=== PATIENT | female | born 1955 | race Caucasian/White ===

== ENCOUNTER → 2016-11-02 | Outpatient (REF) | payer OTHER ==
[~2016-11-02] MED LIST: ALIG4CAP PO; ATOR40TA PO; CO Q400C2 PO; PROBCAP12 PO; PROP40TA PO; RANI1TAB38 PO; TIMO5OPG OS; [UNRECOGNIZED DRUG - CODE] XX
== END ==
LOC: M SFHCWAGY 11:13
PROVIDERS: ATTEND Nurse Practitioner Women's Health
DX: Z12.4 Encounter for screening for malignant neoplasm of cervix (principal); N88.8 Other specified noninflammatory disorders of cervix uteri

== ENCOUNTER → 2016-11-02 | Outpatient (CLI) | payer OTHER ==
--- NOTE | 2016-11-02 12:03 | REPMRS ---
Patient History The patient states she had a clinical breast exam in Patient is postmenopausal and has history of other cancer at age 40. Family history of colorectal cancer in paternal grandfather under age 50, breast cancer in paternal aunt at age 50 or over, colorectal cancer in paternal aunt under age 50, and colorectal cancer in 2 paternal uncles at age 50 or over. Benign excisional biopsy of the left breast, 2000. Took estrogen for 1 year. Digital Woman Screen Mammo: November 02, 2016 - Exam #: [id number] Bilateral CC and MLO view(s) were taken. Technologist: Gwendolyn Winter, Technologist Prior study comparison: November 02, 2015, digital woman screen mammo performed at [facility]. November 02, 2014, digital woman screen mammo performed at [facility]. October 29, 2013, digital woman screen mammo performed at [facility]. FINDINGS: There are scattered fibroglandular densities. There has been no change in the appearance of the mammogram from the prior studies. There is a needle biopsy marker clip in the left breast. There is a mild amount of scattered fibroglandular density which is fairly symmetric. There is no interval development of dominant mass, architectural distortion, or clustered microcalcification suggestive of malignancy. ASSESSMENT: BI-RADS/ACR category 2 mammogram. Benign finding(s). Recommendation Routine screening mammogram in 1 year (for women over age 40). This mammogram was interpreted with the aid of an FDA-approved computer-aided dectection system. Electronically Signed By: Glenn Toro MD 11/02/16 1123
== END ==
LOC: M WHC 11:01
PROVIDERS: ATTEND Nurse Practitioner Women's Health
DX: Z12.31 Encounter for screening mammogram for malignant neoplasm of breast (principal); Z85.9 Personal history of malignant neoplasm, unspecified; Z79.899 Other long term (current) drug therapy

== ENCOUNTER → 2016-11-08 | Outpatient (CLI) | payer OTHER ==
[~2016-11-08] VITALS: Ht 160 cm; Wt 65.8 kg
[~2016-11-08] MED LIST changes: +CALC1TAB42 PO; +CO Q100C10 PO; +LIDOCAINE 2% INJ 100 MG/5 ML SDV (FOR ANES.) As Ordered ONE; +NS 1,000 ML IV SCH; +PROPOFOL 200 MG/20 ML VIAL As Ordered ONE
--- NOTE | 2016-11-08 15:13 | ROOR ---
Patient Name: Loren Melgoza Procedure Date: 11/08/2016 2:58 PM Date of : 1955 Age: 61 Room: [facility] Gender: Female Note Status: Finalized Procedure: Upper GI endoscopy Indications: Dyspepsia, Heartburn Providers: Geoffrey CERVANTES MD Referring MD: WESTLEY RAMIREZ DO Requesting Provider: Medicines: Monitored Anesthesia Care Complications: No immediate complications. Procedure: Pre-Anesthesia Assessment: - The heart rate, respiratory rate, oxygen saturations, blood pressure, adequacy of pulmonary ventilation, and response to care were monitored throughout the procedure. The Endoscope was introduced through the mouth, and advanced to the second part of duodenum. The upper GI endoscopy was accomplished without difficulty. The patient tolerated the procedure well. Findings: Non-severe esophagitis with no bleeding was found at the gastroesophageal junction. Biopsies were taken with a cold forceps for histology. A small hiatal hernia was present. The entire examined stomach was normal. The examined duodenum was normal. Impression: - Non-severe reflux esophagitis. Biopsied. - Small hiatal hernia. - Normal stomach. - Normal examined duodenum. Recommendation: - Use Prilosec (omeprazole) 20 mg PO daily for 1 month. - Follow an antireflux regimen. - Telephone endoscopist for pathology results in 2 weeks. - (the script was sent to your pharmacy on file) Geoffrey Cervantes MD Geoffrey CERVANTES MD 11/08/2016 3:12:39 PM This report has been signed electronically. Number of Addenda: 0 Note Initiated On: 11/08/2016 2:58 PM Estimated Blood Loss: Estimated blood loss: none.
[2016-11-08 15:35] VITALS: BP 140/84
== END | disposition home or self-care (01) ==
LOC: M OPP 13:56
PROVIDERS: ATTEND Internal Medicine Gastroenterology
DX: K20.9 Esophagitis, unspecified (principal); K44.9 Diaphragmatic hernia without obstruction or gangrene; K21.0 Gastro-esophageal reflux disease with esophagitis; I49.9 Cardiac arrhythmia, unspecified; E78.5 Hyperlipidemia, unspecified; M19.90 Unspecified osteoarthritis, unspecified site; Z79.899 Other long term (current) drug therapy

== ENCOUNTER → 2017-01-22 | Outpatient (REF) | payer OTHER ==
[~2017-01-22] MED LIST changes: -LIDOCAINE 2% INJ 100 MG/5 ML SDV (FOR ANES.) As Ordered ONE; -NS 1,000 ML IV SCH; -PROPOFOL 200 MG/20 ML VIAL As Ordered ONE
[2017-01-22 18:32] LABS: ALBUMIN/GLOBULIN RATIO 1.43 (1.00-1.93); ALKALINE PHOSPHATASE 58 U/L (45-117); ALT/SGPT 32 U/L (12-78); ANION GAP 9 MEQ/L (8-16); AST/SGOT 24 U/L (15-37); BILIRUBIN,TOTAL 0.7 MG/DL (0.2-1.0); BLOOD UREA NITROGEN 14 MG/DL (7-18); CALCIUM LEVEL 8.8 MG/DL (8.8-10.2); CARBON DIOXIDE LEVEL 27 MEQ/L (21-32); CHLORIDE LEVEL 105 MEQ/L (98-107); CHOLESTEROL LEVEL 205 MG/DL (<200); CREATININE FOR GFR 0.73 MG/DL (0.55-1.02); GLOMERULAR FILTRATION RATE > 60.0 (>45); GLUCOSE, FASTING 97 MG/DL (80-110); POTASSIUM SERUM 4.3 MEQ/L (3.5-5.1); SODIUM LEVEL 141 MEQ/L (136-145); TOTAL PROTEIN 6.8 GM/DL (6.4-8.2); TRIGLYCERIDES LEVEL 126 MG/DL (<150)
== END ==
LOC: M SFHCCLAY 09:59
PROVIDERS: ATTEND Family Medicine
DX: E78.2 Mixed hyperlipidemia (principal)

== ENCOUNTER → 2017-11-06 | Outpatient (CLI) | payer OTHER | LOC: M WHC 10:30 | DX: Z12.31 Encounter for screening mammogram for malignant neoplasm of breast (principal); Z78.0 Asymptomatic menopausal state; Z79.890 Hormone replacement therapy; Z80.0 Family history of malignant neoplasm of digestive organs; Z85.828 Personal history of other malignant neoplasm of skin | CPT/HCPCS: 77067 ==

== ENCOUNTER → 2017-11-06 | Outpatient (REF) | payer OTHER | LOC: M SFHCWAGY 11:04 | DX: Z12.4 Encounter for screening for malignant neoplasm of cervix (principal) | CPT/HCPCS: 88142 ==

== ENCOUNTER → 2017-12-05 | Outpatient (REF) | payer OTHER | LOC: M SFHCLERA 09:43 | DX: L30.9 Dermatitis, unspecified (principal) | CPT/HCPCS: 88305 ==

== ENCOUNTER → 2017-12-12 | Outpatient (REF) | payer OTHER ==
[2017-12-15 00:06] LABS: Lyme Disease IgG/IgM Antibodie <0.91 ISR (0.00-0.90); Lyme Disease IgM Ab Quantitati <0.80 index (0.00-0.79)
== END ==
LOC: M SFHCLERA 16:00
DX: L92.0 Granuloma annulare (principal)
CPT/HCPCS: 86617

== ENCOUNTER → 2018-01-28 | Outpatient (REF) | payer OTHER ==
[2018-01-28 18:01] LABS: ALBUMIN/GLOBULIN RATIO 1.33 (1.00-1.93); ALKALINE PHOSPHATASE 57 U/L (45-117); ALT/SGPT 31 U/L (12-78); ANION GAP 6 MEQ/L (8-16); AST/SGOT 27 U/L (7-37); BILIRUBIN,TOTAL 0.6 MG/DL (0.2-1.0); BLOOD UREA NITROGEN 12 MG/DL (7-18); CALCIUM LEVEL 8.3 MG/DL (8.8-10.2); CARBON DIOXIDE LEVEL 29 MEQ/L (21-32); CHLORIDE LEVEL 101 MEQ/L (98-107); CHOLESTEROL LEVEL 214 MG/DL (<200); CHOLESTEROL RISK RATIO 3.242 (<5); CREATININE FOR GFR 0.79 MG/DL (0.55-1.30); GLOMERULAR FILTRATION RATE > 60.0 (>45); GLUCOSE, FASTING 101 MG/DL (70-100); HDL CHOLESTEROL 66 MG/DL (>40); NON-HDL-C 148 MG/DL; POTASSIUM SERUM 4.4 MEQ/L (3.5-5.1); SODIUM LEVEL 136 MEQ/L (136-145); TRIGLYCERIDES LEVEL 65 MG/DL (<150)
== END ==
LOC: M SFHCCLAY 10:01
DX: E78.2 Mixed hyperlipidemia (principal)
CPT/HCPCS: 84443

== ENCOUNTER → 2018-07-29 | Outpatient (REF) | payer MEDICARE ==
[2018-07-29 13:11] LABS: ALBUMIN 4.1 GM/DL (3.2-5.2); ALBUMIN/GLOBULIN RATIO 1.41 (1.00-1.93); ALKALINE PHOSPHATASE 73 U/L (45-117); ALT/SGPT 36 U/L (12-78); ANION GAP 12 MEQ/L (8-16); AST/SGOT 28 U/L (7-37); BLOOD UREA NITROGEN 13 MG/DL (7-18); CARBON DIOXIDE LEVEL 25 MEQ/L (21-32); CHLORIDE LEVEL 100 MEQ/L (98-107); CREATININE FOR GFR 0.71 MG/DL (0.55-1.30); GLOMERULAR FILTRATION RATE > 60.0 (>45); GLUCOSE, FASTING 91 MG/DL (70-100); POTASSIUM SERUM 4.8 MEQ/L (3.5-5.1); SODIUM LEVEL 137 MEQ/L (136-145)
== END ==
LOC: M SFHCCLAY 09:37
DX: E78.2 Mixed hyperlipidemia (principal)
CPT/HCPCS: 80053

== ENCOUNTER → 2018-07-30 | Outpatient (REF) | payer MEDICARE | LOC: M SFHCLERA 17:39 | DX: D23.5 Other benign neoplasm of skin of trunk (principal); L82.1 Other seborrheic keratosis | CPT/HCPCS: 88305 ==

== ENCOUNTER 2018-11-03 07:44 | Day surgery (SDC) | payer MEDICARE ==
[~2018-11-03] VITALS: Ht 160 cm; Wt 66.2 kg
[~2018-11-03 07:44] MED LIST changes: -ATOR40TA PO; +ATOR40TA75 PO; +LIDOCAINE 2% INJ 100 MG/5 ML SDV (FOR ANES.) As Ordered ONE; -PROP40TA PO; +PROP40TA62 PO; +PROPOFOL 200 MG/20 ML VIAL As Ordered ONE; +TIMO0.5S29 OU; -TIMO5OPG OS; +TIMO5OPG OU
[2018-11-03] MEDS ORDERED: NS 1,000 ML IV ONE (08:15)
--- NOTE | 2018-11-03 09:11 | ROOR ---
Patient Name: Loren Melgoza Procedure Date: 11/03/2018 8:49 AM Date of : 1955 Age: 63 Room: [facility] Gender: Female Note Status: Finalized Procedure: Colonoscopy Indications: Colon cancer screening in patient at increased risk: Family history of colorectal cancer in multiple 2nd degree relatives Providers: Geoffrey CERVANTES MD Referring MD: SUNDAR MAY DO Requesting Provider: Medicines: Monitored Anesthesia Care Complications: No immediate complications. Procedure: Pre-Anesthesia Assessment: - The heart rate, respiratory rate, oxygen saturations, blood pressure, adequacy of pulmonary ventilation, and response to care were monitored throughout the procedure. The Colonoscope was introduced through the anus and advanced to the terminal ileum, with identification of the appendiceal orifice and IC valve. The colonoscopy was performed without difficulty. The patient tolerated the procedure well. The quality of the bowel preparation was good. Findings: The perianal and digital rectal examinations were normal. Mild sigmoid diverticulosis and small internal hemorrhoids. The entire examined colon appeared normal on direct and retroflexion views. Impression: - Mild sigmoid diverticulosis and small internal hemorrhoids. - The entire colon is normal on direct and retroflexion views. - No specimens collected. Recommendation: - Repeat colonoscopy in 5 years for screening purposes. Geoffrey Cervantes MD Geoffrey CERVANTES MD 11/03/2018 9:10:31 AM This report has been signed electronically. Number of Addenda: 0 Note Initiated On: 11/03/2018 8:49 AM Estimated Blood Loss: Estimated blood loss: none.
[2018-11-03 09:37] VITALS: BP 104/67
== END 2018-11-03 09:39 | disposition home or self-care (01) ==
LOC: M OPP 07:44
PROVIDERS: ATTEND Internal Medicine Gastroenterology
DX: Z12.11 Encounter for screening for malignant neoplasm of colon (principal); R00.0 Tachycardia, unspecified; Z80.0 Family history of malignant neoplasm of digestive organs; Z80.3 Family history of malignant neoplasm of breast; K57.30 Diverticulosis of large intestine without perforation or abscess without bleeding; K64.8 Other hemorrhoids; Z79.899 Other long term (current) drug therapy

== ENCOUNTER → 2018-11-06 | Outpatient (CLI) | payer MEDICARE ==
[~2018-11-06] MED LIST changes: -LIDOCAINE 2% INJ 100 MG/5 ML SDV (FOR ANES.) As Ordered ONE; -PROPOFOL 200 MG/20 ML VIAL As Ordered ONE
--- NOTE | 2018-11-06 11:57 | REPMRS ---
Patient History The patient states she had a clinical breast exam in 10/2018. Patient is postmenopausal and has history of skin cancer at age 40. Family history of colorectal cancer under age 50 in paternal uncle, colorectal cancer under age 50 in paternal aunt, colorectal cancer at age 50 or over in paternal uncle, colorectal cancer under age 50 in paternal grandfather. Benign excisional biopsy of the left breast, 2000. Taking estrogen for 10 years. 3D TOMOSYNTHESIS WAS PERFORMED. Digital Woman Screen Mammo: November 06, 2018 - Exam #: [id number] Bilateral CC and MLO view(s) were taken. Technologist: Jyoti Elliott, Technologist Prior study comparison: November 06, 2017, digital woman screen mammo performed at [facility]. November 02, 2016, digital woman screen mammo performed at [facility] [employer] [facility]. FINDINGS: There are scattered fibroglandular densities. There has been no change in the appearance of the mammogram from the prior studies. There is a mild amount of residual fibroglandular tissue which is fairly symmetric. There is no interval development of dominant mass, architectural distortion, or clustered microcalcification suggestive of malignancy. Assessment: BI-RADS/ACR category 1 mammogram. Negative Mammogram. Recommendation Routine screening mammogram in 1 year (for women over age 40). This mammogram was interpreted with the aid of an FDA-approved computer-aided dectection system. Electronically Signed By: Irwin Avalos MD 11/06/18 5709
== END ==
LOC: M WHC 10:39
PROVIDERS: ATTEND Nurse Practitioner Women's Health
DX: Z12.31 Encounter for screening mammogram for malignant neoplasm of breast (principal); Z78.0 Asymptomatic menopausal state; Z85.828 Personal history of other malignant neoplasm of skin; Z86.018 Personal history of other benign neoplasm; Z92.23 Personal history of estrogen therapy

== ENCOUNTER → 2019-01-26 | Outpatient (REF) | payer MEDICARE ==
[~2019-01-26] MED LIST changes: +TIMO0.5S7 OU; -TIMO5OPG OU
[2019-01-26 19:30] LABS: ALT/SGPT 37 U/L (12-78); BILIRUBIN,TOTAL 0.9 MG/DL (0.2-1.0); BLOOD UREA NITROGEN 11 MG/DL (7-18); CALCIUM LEVEL 8.6 MG/DL (8.8-10.2); CARBON DIOXIDE LEVEL 27 MEQ/L (21-32); CHLORIDE LEVEL 101 MEQ/L (98-107); CHOLESTEROL LEVEL 188 MG/DL (<200); CHOLESTEROL RISK RATIO 3.081 (<5); CREATININE FOR GFR 0.74 MG/DL (0.55-1.30); GLOMERULAR FILTRATION RATE > 60.0 (>45); GLUCOSE, FASTING 95 MG/DL (70-100); HDL CHOLESTEROL 61 MG/DL (>40); LDL CHOLESTEROL 113 MG/DL (<100); NON-HDL-C 127 MG/DL; POTASSIUM SERUM 4.8 MEQ/L (3.5-5.1); SODIUM LEVEL 136 MEQ/L (136-145); TOTAL PROTEIN 7.3 GM/DL (6.4-8.2); TRIGLYCERIDES LEVEL 72 MG/DL (<150)
== END ==
LOC: M SFHCCLAY 09:53
PROVIDERS: ATTEND Family Medicine
DX: E78.2 Mixed hyperlipidemia (principal)

== ENCOUNTER → 2019-08-18 | Outpatient (CLI) | payer MEDICARE ==
--- NOTE | 2019-08-18 11:16 | REP ---
RIGHT LONG FINGER SERIES: Four views. HISTORY: Nodule on the distal phalanx of the third finger. FINDINGS: Four views of the right long finger demonstrate advanced joint space narrowing, some central erosive change, and prominent osteophyte formation and sclerosis at the DIP joint of the right long finger. There is somewhat nodular soft tissue fullness over the dorsal aspect of the DIP joint. 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 There are lesser osteoarthritic changes at the DIP joint of the ring finger and the index finger noted incidentally. 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 Electronically Signed by Boy Toro MD 08/18/2019 11:47 A
== END ==
LOC: M CLY 10:44
PROVIDERS: ATTEND Family Medicine
DX: M19.041 Primary osteoarthritis, right hand (principal); R22.31 Localized swelling, mass and lump, right upper limb

== ENCOUNTER → 2020-02-01 | Outpatient (REF) | payer MEDICARE ==
[2020-02-01 16:57] LABS: ALBUMIN 4.2 GM/DL (3.2-5.2); ALT/SGPT 43 U/L (12-78); BILIRUBIN,TOTAL 0.6 MG/DL (0.2-1.0); BLOOD UREA NITROGEN 11 MG/DL (7-18); CALCIUM LEVEL 8.9 MG/DL (8.8-10.2); CARBON DIOXIDE LEVEL 30 MEQ/L (21-32); CHLORIDE LEVEL 104 MEQ/L (98-107); CHOLESTEROL LEVEL 201 MG/DL (<200); CHOLESTEROL RISK RATIO 3.092 (<5); CREATININE FOR GFR 0.76 MG/DL (0.55-1.30); GLOMERULAR FILTRATION RATE > 60.0 (>45); GLUCOSE, FASTING 110 MG/DL (70-100); HDL CHOLESTEROL 65 MG/DL (>40); LDL CHOLESTEROL 117 MG/DL (<100); NON-HDL-C 136 MG/DL; POTASSIUM SERUM 4.5 MEQ/L (3.5-5.1); SODIUM LEVEL 138 MEQ/L (136-145); TOTAL PROTEIN 6.8 GM/DL (6.4-8.2); TRIGLYCERIDES LEVEL 95 MG/DL (<150)
== END ==
LOC: M SFHCCLAY 09:53
PROVIDERS: ATTEND Family Medicine
DX: E78.2 Mixed hyperlipidemia (principal)

== ENCOUNTER → 2020-03-07 | Outpatient (CLI) | payer MEDICARE ==
--- NOTE | 2020-03-07 12:34 | REPMRS ---
Patient History The patient states she has not had a clinical breast exam in over a year. Family history of colorectal cancer under age 50 in paternal uncle, colorectal cancer under age 50 in paternal aunt, colorectal cancer at age 50 or over in paternal uncle, colorectal cancer under age 50 in paternal grandfather. Benign excisional biopsy of the left breast, 1999. Taking estrogen for 10 years. Digital Woman Screen Mammo: March 07, 2020 - Exam #: [id number] Bilateral CC and MLO view(s) were taken. Technologist: Greta Durbin, Technologist Prior study comparison: November 06, 2018, bilateral digital woman screen mammo performed at [facility]. November 06, 2017, digital woman screen mammo performed at [facility]. November 02, 2016, digital woman screen mammo performed at [facility]. FINDINGS: There are scattered fibroglandular densities. The Volpara volumetric breast density category is:B. There has been no change in the appearance of the mammogram from the prior studies. There is a mild amount of scattered fibroglandular density which is fairly symmetric. There is no interval development of dominant mass, architectural distortion, or grouped microcalcification suggestive of malignancy. 3-D tomosynthesis shows no additional findings. Assessment: BI-RADS/ACR category 1 mammogram. Negative Mammogram. Recommendation Routine screening mammogram of both breasts in 1 year (for women over age 40). This patient's Lifetime Breast Cancer Risk is estimated at 5.0 %. This mammogram was interpreted with the aid of an FDA-approved computer-aided dectection system. Electronically Signed By: Glenn Toro MD 03/07/20 1600
--- NOTE | 2020-03-10 13:18 | DEXA ---
AP SPINE L1 - L4 1.203 0.1 1.7 LT FEMUR TOTAL 1.004 0.0 1.3 LT NECK 0.984 -0.4 1.2 RT FEMUR TOTAL 0.994 -0.1 1.2 RT NECK 1.011 -0.2 1.3 TOTAL BODY TOTAL OTHER COMMENTS: Normal bone densitometry of the spine and hips. The density of the spine has increased 4.2% since the initial exam on 06/27/2005. The increased 1.3% since the most recent exam on 10/30/2011. The density of the left hip has decreased 2.9% since the initial exam on 06/27/2005. The density of the left hip has increased 0.6% since the most recent exam on 10/30/2011. The density of the right hip has decreased 2.8% since the initial exam on 06/27/2005. The density of the right hip has increased 1.1% since the most recent exam on 10/30/2011. FOLLOW-UP: Recommendation for the next bone density exam: 5 years. JANE
== END ==
LOC: M WHC 10:51
PROVIDERS: ATTEND Nurse Practitioner Women's Health
DX: Z12.31 Encounter for screening mammogram for malignant neoplasm of breast (principal); Z78.0 Asymptomatic menopausal state

== ENCOUNTER → 2020-08-15 | Outpatient (CLI) | payer MEDICARE ==
--- NOTE | 2020-08-16 12:54 | ECHO ---
DATE OF PROCEDURE: 08/15/2020 Age: 65 Gender: Female Height: 160 cm Weight: Weight 63 kg REFERRING PHYSICIAN: Janie Kapoor MD INDICATION: Tachycardia MEASUREMENTS: IVS 0.9 LV 3.9 LVPW 0.9 LA 2.8 Aorta 3.1 RV 2.5 IVC 1.0 Mitral E wave velocity 45, A wave 73 E prime septal 6.3 E prime lateral 5.8 FINDINGS: This study is of acceptable technical quality. Underlying sinus rhythm. Normal LV size with preserved LV systolic function. Estimated left ventricular ejection fraction (LVEF) 60 to 65%. No segmental wall motion abnormalities are appreciated. Normal RV size and systolic function. Both atria appear normal. All four cardiac valves were reasonably well seen and appear normal. No pericardial effusion is present. Inferior vena cava is normal size. Aortic root and aortic arch appear normal. Doppler interrogation reveals competent aortic mitral and pulmonic valves. There is trace tricuspid insufficiency. Calculated pulmonary artery pressure is within normal limits. Mitral inflow pattern and tissue Doppler imaging of mitral annulus reveal grade 1 diastolic dysfunction. CONCLUSIONS: 1. Study is of acceptable technical quality. The patient is in sinus rhythm. 2. Normal LV size with preserved LV systolic function and grade I diastolic dysfunction. 3. No significant valvular disease. 4. Normal central venous pressure, likely also normal pulmonary artery pressure. COMMENTS: Essentially normal echocardiogram for the patient's age. [facility]
== END ==
LOC: M CARPUL 09:12
PROVIDERS: ATTEND Family Medicine
DX: I34.0 Nonrheumatic mitral (valve) insufficiency (principal); I47.1 Supraventricular tachycardia

== ENCOUNTER → 2020-10-31 | Outpatient (REF) | payer MEDICARE ==
[2020-11-01 12:07] LABS: BASO % 0.9 % (0.0-1.0); EOS # 0.1 10^3/uL (0.0-0.5); EOS % 1.1 % (0.0-3.0); HEMATOCRIT 37.3 % (36.0-47.0); HEMOGLOBIN 12.1 g/dl (12.0-15.5); LYMPH # 1.3 10^3/uL (1.5-5.0); LYMPH % 27.9 % (24.0-44.0); MEAN CORPUSCULAR HEMOGLOBIN 30.3 pg (27.0-33.0); MEAN CORPUSCULAR HGB CONC 32.4 g/dl (32.0-36.5); MEAN CORPUSCULAR VOLUME 93.5 fl (80.0-96.0); MONO # 0.6 10^3/uL (0.0-0.8); MONO % 13.2 % (0.0-5.0); NEUTROPHILS # 2.6 10^3/uL (1.5-8.5); NEUTROPHILS % 56.5 % (36.0-66.0); PLATELET COUNT, AUTOMATED 206 10^3/uL (150-450); RED BLOOD COUNT 3.99 10^6/uL (4.00-5.40); WHITE BLOOD COUNT 4.6 10^3/uL (4.0-10.0)
[2020-11-01 12:39] LABS: BILIRUBIN,TOTAL 0.5 MG/DL (0.2-1.0); CALCIUM LEVEL 8.9 MG/DL (8.8-10.2); CHOLESTEROL RISK RATIO 3.23 (<5); CREATININE FOR GFR 1.15 MG/DL (0.55-1.30); GLOMERULAR FILTRATION RATE 50.1 (>45); TOTAL PROTEIN 6.7 GM/DL (6.4-8.2)
== END ==
LOC: M SFHCCLAY 14:01
PROVIDERS: ATTEND Family Medicine
DX: R10.9 Unspecified abdominal pain (principal); E78.2 Mixed hyperlipidemia

== ENCOUNTER → 2020-11-16 | Outpatient (CLI) | payer MEDICARE ==
--- NOTE | 2020-11-16 11:15 | REP ---
INDICATION: RUQ ABD PAIN. COMPARISON: None. TECHNIQUE: Real-time sonographic evaluation of right upper quadrant performed. FINDINGS: The gallbladder demonstrates no evidence of intraluminal sludge or calculi, wall thickening or pericholecystic fluid. There is no intrahepatic or extrahepatic biliary dilatation, common bile duct measures 4 mm in maximum diameter. The liver demonstrates homogeneous echotexture with no gross mass. In the body of the pancreas a 5 mm cyst is noted. The right kidney demonstrates no hydronephrosis, with a normal size of 9.6 cm in length. No free fluid is seen. IMPRESSION: In the body of the pancreas there is a 5 mm cystic structure which is of doubtful significance. However, I would recommend further evaluation with an MRI of the pancreas with and without contrast. The right upper quadrant ultrasound is otherwise unremarkable. <Electronically signed by Irwin Avalos > 11/16/20 1111
== END ==
LOC: M RAD 09:27
PROVIDERS: ATTEND Family Medicine
DX: R10.9 Unspecified abdominal pain (principal)

== ENCOUNTER → 2020-12-09 | Outpatient (CLI) | payer MEDICARE ==
[~2020-12-09] MED LIST changes: +PROHANCE 279.3MG/ML 15ML VIAL As Ordered ONE
--- NOTE | 2020-12-09 12:42 | REP ---
INDICATION: PANCREATIC CYST, ABNORMALITY. 5 mm cystic areas seen in the body of the pancreas on sonography November 16, 2020. MRI study recommended. COMPARISON: Comparison sonography November 16, 2020.. TECHNIQUE: Axial and coronal T1 and T2 weighted sequences include spin echo, fast spin echo, in and out of phase, and dynamically acquired sequential postcontrast images. 6 mL of intravenous ProHance is administered. FINDINGS: No focal liver lesion or spleen lesion is seen. Normal adrenal glands are observed bilaterally. No filling defect is seen in the gallbladder on T2 weighted scans. Common bile duct and intrahepatic bile ducts are normal no evidence of pancreatic ductal dilation is seen. Pancreas is somewhat atrophic generally. There is a tiny cystic area in the body of the pancreas on T2 weighted scans 5 mm in diameter corresponding with the ultrasound findings. No other pancreatic cyst is seen. Dynamically acquired sequential postcontrast images show no evidence of enhancement within this small cystic area. No hypervascular or hypovascular lesion is seen in the pancreas. There is no evidence of upper abdominal lymphadenopathy. No renal lesion. IMPRESSION: 5 mm cyst in the body of the pancreas without abnormal contrast enhancement. Benign appearance. Follow-up ultrasound in 6-9 months suggested to document stability over time. <Electronically signed by Glenn Toor > 12/09/20 1569
== END ==
LOC: M RAD 11:20
PROVIDERS: ATTEND Family Medicine
DX: Q45.3 Other congenital malformations of pancreas and pancreatic duct (principal)
CPT/HCPCS: 74183; A9576

== ENCOUNTER → 2020-12-20 | Outpatient (REF) | payer MEDICARE ==
[~2020-12-20] MED LIST changes: -PROHANCE 279.3MG/ML 15ML VIAL As Ordered ONE
== END ==
LOC: M SFHCCLAY 17:27
PROVIDERS: ATTEND Family Medicine
DX: L30.9 Dermatitis, unspecified (principal); R21 Rash and other nonspecific skin eruption

== ENCOUNTER 2021-01-15 16:09 | Emergency (ER) | payer MEDICARE ==
[~2021-01-15] VITALS: Ht 160 cm; Wt 69.4 kg
[2021-01-15] MEDS ORDERED: LATA0.0015 OS (16:40)
[2021-01-15] MEDS ORDERED: COMB0.2S OU (16:40)
[2021-01-15 17:11] LABS: BASO % 0.5 % (0.0-1.0); EOS % 0.5 % (0.0-3.0); HEMATOCRIT 37.3 % (36.0-47.0); HEMOGLOBIN 12.5 g/dl (12.0-15.5); LYMPH # 1.7 10^3/uL (1.5-5.0); LYMPH % 21.5 % (24.0-44.0); MEAN CORPUSCULAR HEMOGLOBIN 30.6 pg (27.0-33.0); MEAN CORPUSCULAR HGB CONC 33.5 g/dl (32.0-36.5); MEAN CORPUSCULAR VOLUME 91.4 fl (80.0-96.0); MONO # 0.8 10^3/uL (0.0-0.8); MONO % 10.1 % (2.0-8.0); NEUTROPHILS # 5.3 10^3/uL (1.5-8.5); PLATELET COUNT, AUTOMATED 179 10^3/uL (150-450); RED BLOOD COUNT 4.08 10^6/uL (4.00-5.40); WHITE BLOOD COUNT 7.9 10^3/uL (4.0-10.0)
--- NOTE | 2021-01-15 17:29 | REP ---
INDICATION: CHEST PAIN COMPARISON: 01/02/2012 TECHNIQUE: Portable AP view of the chest FINDINGS: The mediastinum and cardiac silhouette are stable and within normal limits for portable technique. No focal consolidation or effusion. Small area of linear fibroatelectatic changes at the left base noted and likely chronic. No effusion. Skeletal structures intact. IMPRESSION: No consolidation or effusion. <Electronically signed by Charlie Amador > 01/15/21 0426
[2021-01-15 17:45] LABS: ALBUMIN 4.3 GM/DL (3.2-5.2); ALT/SGPT 35 U/L (12-78); BILIRUBIN,DIRECT 0.1 MG/DL (0.0-0.2); BILIRUBIN,TOTAL 0.7 MG/DL (0.2-1.0); BLOOD UREA NITROGEN 9 MG/DL (7-18); CALCIUM LEVEL 9.4 MG/DL (8.8-10.2); CARBON DIOXIDE LEVEL 26 MEQ/L (21-32); CHLORIDE LEVEL 96 MEQ/L (98-107); FREE T4 0.97 NG/DL (0.76-1.46); GLOMERULAR FILTRATION RATE > 60.0 (>45); GLUCOSE, FASTING 100 MG/DL (70-100); LIPASE 60 U/L (73-393); MAGNESIUM LEVEL 1.9 MG/DL (1.8-2.4); NT-PRO BNP 146 PG/ML (<125); POTASSIUM SERUM 4.1 MEQ/L (3.5-5.1); SODIUM LEVEL 130 MEQ/L (136-145); TOTAL PROTEIN 6.9 GM/DL (6.4-8.2)
[2021-01-15 18:44] VITALS: BP 127/68
--- NOTE | 2021-01-15 22:06 | ECGEPIP ---
[facility] - ED Test Date: 2021-01-15 Pat Name: LASHAY CARRASQUILLO Department: Room: - Gender: Female Process Control Technician: : 1955 Requested By: Dony Banuelos Order Number: [id number] Reading MD: Yohana Hawley Measurements Intervals [place] Rate: 61 P: 31 LA: 196 QRS: -7 QRSD: 74 T: 20 QT: 408 QTc: 410 Interpretive Statements Normal sinus rhythm Low voltage QRS Septal infarct , age undetermined NSTTW abnormalities No prior Electronically Signed on 01-15-2021 22:06:12 EDT by Yohana Hawley
--- NOTE | 2021-01-15 22:08 | ECGEPIP ---
[facility] - ED Test Date: 2021-01-15 Pat Name: LASHAY CARRASQUILLO Department: Room: - Gender: Female Founder And Chief Executive Officer: MILTON : 1955 Requested By: KRZYSZTOF HOWARD Order Number: [id number] Reading MD: Yohana Hawley Measurements Intervals [place] Rate: 63 P: -2 AL: 156 QRS: -5 QRSD: 70 T: 28 QT: 416 QTc: 425 Interpretive Statements Normal sinus rhythm Low voltage QRS Cannot rule out Anterior infarct , age undetermined NSTTW abnormalities similar 01/13/21 Electronically Signed on 01-15-2021 22:08:44 EDT by Yohana Hawley
== END 2021-01-15 18:45 | disposition home or self-care (01) ==
LOC: M ED 16:09
DX: I47.9 Paroxysmal tachycardia, unspecified (principal); R07.9 Chest pain, unspecified; I10 Essential (primary) hypertension; E78.5 Hyperlipidemia, unspecified; R50.9 Fever, unspecified; H40.9 Unspecified glaucoma; Z79.899 Other long term (current) drug therapy

== ENCOUNTER → 2021-03-08 | Outpatient (CLI) | payer MEDICARE ==
[~2021-03-08] MED LIST changes: +COMB0.2S OU; +LATA0.0015 OS
--- NOTE | 2021-03-08 12:57 | REPMRS ---
Patient History The patient states she has not had a clinical breast exam in over a year. Family history of colorectal cancer under age 50 in paternal uncle, colorectal cancer under age 50 in paternal aunt, colorectal cancer at age 50 or over in paternal uncle, colorectal cancer under age 50 in paternal grandfather. Benign excisional biopsy of the left breast, 1999. Taking estrogen for 10 years. Tomosynthesis is performed. Volpara breast density is b. [facility] lifetime risk of breast cancer 4.7%. Patient states no breast complaints today. Patient has signed MRS History Sheet. Digital Woman Screen Mammo: March 08, 2021 - Exam #: [id number] Bilateral CC and MLO view(s) were taken. Technologist: Griselda Mistryologist Prior study comparison: March 07, 2020, bilateral digital woman screen mammo performed at [facility]. November 06, 2018, bilateral digital woman screen mammo performed at [facility]. FINDINGS: There are scattered fibroglandular densities. There has been no change in the appearance of the mammogram from the prior studies. There is a mild amount of residual fibroglandular tissue which is fairly symmetric. There is no interval development of dominant mass, architectural distortion, or clustered microcalcification suggestive of malignancy. Assessment: BI-RADS/ACR category 1 mammogram. Negative Mammogram. Recommendation Routine screening mammogram in 1 year (for women over age 40). This mammogram was interpreted with the aid of an FDA-approved computer-aided dectection system. Electronically Signed By: Irwin Avalos MD 03/08/21 4485
== END ==
LOC: M WHC 11:20
PROVIDERS: ATTEND Nurse Practitioner Women's Health
DX: Z12.31 Encounter for screening mammogram for malignant neoplasm of breast (principal); Z80.0 Family history of malignant neoplasm of digestive organs

== ENCOUNTER → 2021-03-17 | Outpatient (CLI) | payer MEDICARE ==
--- NOTE | 2021-03-17 16:44 | REP ---
INDICATION: CHEST PAIN UNSPECIFIED COMPARISON: None. TECHNIQUE: Standard helical technique without intravenous contrast administration FINDINGS: There is no mediastinal or hilar adenopathy. There are no pleural or pericardial effusions. The imaged upper abdomen is within normal limits. The imaged osseous structures are within normal limits. Age-related spinal degenerative changes are noted. Evaluation of the lung barker shows minimal biapical pleuroparenchymal scarring. There is a subtle zone of vague density in the inferior lingula. No definite abnormal nodules, masses, or opacities are present. IMPRESSION: There is minimal biapical pleuroparenchymal scarring. Since are no priors comparison would recommend a six-month follow-up. There is a vague zone of increased parenchymal density seen in the inferior lingula which is likely subsegmental atelectatic change or slight fibrotic change. This can also be followed in the recommended 6 month time frame. <Electronically signed by Miko Herrera > 03/17/21 1640
== END ==
LOC: M RAD 16:23
PROVIDERS: ATTEND Family Medicine
DX: R07.89 Other chest pain (principal); R91.8 Other nonspecific abnormal finding of lung field; J98.4 Other disorders of lung

== ENCOUNTER → 2021-07-31 | Outpatient (REF) | payer MEDICARE | LOC: M SFHCCLAY 15:45 | PROVIDERS: ATTEND Family Medicine | DX: R39.15 Urgency of urination (principal) ==

== ENCOUNTER → 2021-08-15 | Outpatient (CLI) | payer MEDICARE ==
--- NOTE | 2021-08-15 12:16 | REP ---
INDICATION: PANCREAS CYST. COMPARISON: 11/16/2020 TECHNIQUE: Real-time sonographic evaluation of the right upper quadrant with Doppler FINDINGS: Multiple ultrasonographic images of the liver show the hepatic parenchymal echo texture to appear unremarkable. There are no focal masses. There is no intrahepatic ductal dilatation. The common bile duct measures approximately 3 mm in its greatest transverse dimension. Multiple ultrasonographic images of the gallbladder show no focal or diffuse gallbladder wall thickening. There are no echogenic foci within the gallbladder lumen, which casts acoustic shadows. There is no pericholecystic edema. Once again, the imaged portion the pancreas shows a hypoechoic region in the pancreatic body which measures 5 mm and may have sonographically changed in its appearance compared to the prior exam. The imaged portion of the right kidney is unremarkable. IMPRESSION: Pancreatic lesion as described above. Follow-up with pancreatic MRI before and after intravenous gadolinium is recommended so it can be compared to the prior pancreatic MRI of 12/09/2020. Accredited by the [employer] in General Ultrasound. <Electronically signed by Miko Herrera > 08/15/21 6412
== END ==
LOC: M RAD 10:08
PROVIDERS: ATTEND Family Medicine
DX: K86.2 Cyst of pancreas (principal)

== ENCOUNTER → 2021-08-30 | Outpatient (REF) | payer MEDICARE ==
[2021-08-30 16:19] LABS: BLOOD UREA NITROGEN 13 MG/DL (7-18); CALCIUM LEVEL 9.5 MG/DL (8.8-10.2); CARBON DIOXIDE LEVEL 28 MEQ/L (21-32); CHLORIDE LEVEL 104 MEQ/L (98-107); CREATININE FOR GFR 0.79 MG/DL (0.55-1.30); GLOMERULAR FILTRATION RATE > 60.0 (>45); GLUCOSE, FASTING 111 MG/DL (70-100); POTASSIUM SERUM 4.7 MEQ/L (3.5-5.1); SODIUM LEVEL 138 MEQ/L (136-145)
== END ==
LOC: M SFHCCLAY 10:03
PROVIDERS: ATTEND Family Medicine
DX: K86.2 Cyst of pancreas (principal); E78.2 Mixed hyperlipidemia

== ENCOUNTER → 2021-09-19 | Outpatient (CLI) | payer MEDICARE ==
[~2021-09-19] MED LIST changes: +CVS1CAP2 PO; +LUTE6CAP9 PO; +NEXI20CA PO; +PROHANCE 279.3MG/ML 15ML VIAL As Ordered ONE; +RHUB4TAB PO
== END ==
LOC: M RAD 10:37
PROVIDERS: ATTEND Family Medicine
DX: K86.2 Cyst of pancreas (principal)
CPT/HCPCS: 74183; A9576

== ENCOUNTER → 2021-10-19 | Outpatient (CLI) | payer MEDICARE ==
[~2021-10-19] MED LIST changes: -PROHANCE 279.3MG/ML 15ML VIAL As Ordered ONE
== END ==
LOC: M RAD 13:09
PROVIDERS: ATTEND Family Medicine
DX: J98.4 Other disorders of lung (principal); K44.9 Diaphragmatic hernia without obstruction or gangrene

== ENCOUNTER → 2021-10-21 | Outpatient (CLI) | payer MEDICARE | LOC: M LABSMTC 10:51 | PROVIDERS: ATTEND Anesthesiology | DX: Z01.812 Encounter for preprocedural laboratory examination (principal); Z20.822 Contact with and (suspected) exposure to COVID-19 ==

== ENCOUNTER 2021-10-26 10:09 | Day surgery (SDC) | payer MEDICARE ==
[~2021-10-26] VITALS: Ht 160 cm; Wt 68.0 kg
[~2021-10-26 10:09] MED LIST changes: +NS 1,000 ML IV ONE
[2021-10-26] MEDS ORDERED: fentaNYL 100 MCG/2 ML INJECTION As Ordered ONE (11:11)
[2021-10-26] MEDS ORDERED: propofoL 200 MG/20 ML VIAL As Ordered ONE ×2 (11:12→11:27)
[2021-10-26] MEDS ORDERED: LIDOCAINE 2% 100MG/5ML SDV (FOR ANES.) As Ordered ONE (11:12)
[2021-10-26] MEDS ORDERED: ONDANSETRON 4MG/2ML VIAL As Ordered ONE (12:09)
[2021-10-26 12:56] VITALS: BP 152/71
== END 2021-10-26 12:58 | disposition home or self-care (01) ==
LOC: M OPP 10:09
PROVIDERS: ATTEND Internal Medicine Gastroenterology
DX: R07.89 Other chest pain (principal); R12 Heartburn; Z80.0 Family history of malignant neoplasm of digestive organs; Z80.3 Family history of malignant neoplasm of breast; Z79.899 Other long term (current) drug therapy
CPT/HCPCS: 43235; J2405; J3010

== ENCOUNTER → 2022-01-23 | Outpatient (REF) | payer MEDICARE ==
[~2022-01-23] MED LIST changes: -NS 1,000 ML IV ONE
[2022-01-23 16:51] LABS: ALT/SGPT 35 U/L (12-78); BILIRUBIN,TOTAL 0.7 MG/DL (0.2-1.0); BLOOD UREA NITROGEN 11 MG/DL (7-18); CALCIUM LEVEL 9.5 MG/DL (8.8-10.2); CARBON DIOXIDE LEVEL 28 MEQ/L (21-32); CHLORIDE LEVEL 99 MEQ/L (98-107); CHOLESTEROL LEVEL 223 MG/DL (<200); CHOLESTEROL RISK RATIO 3.231 (<5); CREATININE FOR GFR 0.71 MG/DL (0.55-1.30); GLOMERULAR FILTRATION RATE > 60.0 (>45); GLUCOSE, FASTING 107 MG/DL (70-100); HDL CHOLESTEROL 69 MG/DL (>40); LDL CHOLESTEROL 139 MG/DL (<100); MAGNESIUM LEVEL 2.1 MG/DL (1.8-2.4); NON-HDL-C 154 MG/DL; POTASSIUM SERUM 4.9 MEQ/L (3.5-5.1); SODIUM LEVEL 135 MEQ/L (136-145); TOTAL PROTEIN 6.9 GM/DL (6.4-8.2); TRIGLYCERIDES LEVEL 77 MG/DL (<150)
[2022-01-23 17:29] LABS: HEMOGLOBIN A1c 5.6 %
[2022-01-23 19:43] LABS: BASO # 0.1 10^3/uL (0.0-0.2); EOS # 0.1 10^3/uL (0.0-0.5); EOS % 1.2 % (0.0-3.0); HEMATOCRIT 37.3 % (36.0-47.0); HEMOGLOBIN 12.7 g/dl (12.0-15.5); LYMPH # 1.8 10^3/uL (1.5-5.0); LYMPH % 37.1 % (24.0-44.0); MEAN CORPUSCULAR HEMOGLOBIN 30.9 pg (27.0-33.0); MEAN CORPUSCULAR VOLUME 90.8 fl (80.0-96.0); MONO # 0.7 10^3/uL (0.0-0.8); MONO % 13.4 % (2.0-8.0); NEUTROPHILS # 2.3 10^3/uL (1.5-8.5); NEUTROPHILS % 47.1 % (36.0-66.0); PLATELET COUNT, AUTOMATED 229 10^3/uL (150-450); RED BLOOD COUNT 4.11 10^6/uL (4.00-5.40); WHITE BLOOD COUNT 4.9 10^3/uL (4.0-10.0)
== END ==
LOC: M SFHCCLAY 09:52
PROVIDERS: ATTEND Family Medicine
DX: E78.2 Mixed hyperlipidemia (principal); K21.00 Gastro-esophageal reflux disease with esophagitis, without bleeding; R73.01 Impaired fasting glucose

== ENCOUNTER → 2022-01-29 | Outpatient (CLI) | payer MEDICARE | LOC: M CLY 11:47 | PROVIDERS: ATTEND Family Medicine | DX: M79.675 Pain in left toe(s) (principal); M19.072 Primary osteoarthritis, left ankle and foot ==

== ENCOUNTER → 2022-03-16 | Outpatient (REF) | payer MEDICARE | LOC: M SFHCCLAY 11:46 | PROVIDERS: ATTEND Family Medicine | DX: R10.9 Unspecified abdominal pain (principal) ==

== ENCOUNTER → 2022-03-21 | Outpatient (CLI) | payer MEDICARE | LOC: M CLY 10:13 | PROVIDERS: ATTEND Family Medicine | DX: M79.642 Pain in left hand (principal); M25.742 Osteophyte, left hand ==

== ENCOUNTER → 2022-07-04 | Outpatient (REF) | payer MEDICARE | LOC: M PLALAB 12:13 | PROVIDERS: ATTEND Nurse Practitioner Family | DX: Z12.4 Encounter for screening for malignant neoplasm of cervix (principal); N95.2 Postmenopausal atrophic vaginitis ==

== ENCOUNTER → 2022-07-04 | Outpatient (CLI) | payer MEDICARE | LOC: M WHC 10:28 | PROVIDERS: ATTEND Nurse Practitioner Family | DX: Z12.31 Encounter for screening mammogram for malignant neoplasm of breast (principal) ==

== ENCOUNTER → 2022-09-27 | Outpatient (REF) | payer MEDICARE ==
[~2022-09-27] MED LIST changes: -CO Q400C2 PO; +CVS400CA10 PO
[2022-09-27 18:00] LABS: BLOOD UREA NITROGEN 14 MG/DL (9-23); CALCIUM LEVEL 9.5 MG/DL (8.3-10.6); CARBON DIOXIDE LEVEL 27 MMOL/L (20-31); CHLORIDE LEVEL 102 MMOL/L (98-107); CREATININE FOR GFR 0.69 MG/DL (0.55-1.30); GLOMERULAR FILTRATION RATE > 60.0 (>45); GLUCOSE, FASTING 103 MG/DL (74-106); SODIUM LEVEL 137 MMOL/L (136-145)
== END ==
LOC: M SFHCCLAY 09:34
PROVIDERS: ATTEND Family Medicine
DX: K86.2 Cyst of pancreas (principal)

== ENCOUNTER → 2022-10-10 | Outpatient (CLI) | payer MEDICARE ==
[~2022-10-10] MED LIST changes: +PROHANCE 279.3MG/ML 15ML VIAL As Ordered ONE
== END ==
LOC: M RAD 12:35
PROVIDERS: ATTEND Family Medicine
DX: K86.2 Cyst of pancreas (principal)
CPT/HCPCS: 74183; A9576

== ENCOUNTER → 2023-01-30 | Outpatient (REF) | payer MEDICARE ==
[~2023-01-30] MED LIST changes: -PROHANCE 279.3MG/ML 15ML VIAL As Ordered ONE; +TIMO0.5S20 OU; -TIMO0.5S29 OU
[2023-01-30 18:02] LABS: HEMOGLOBIN A1c 5.5 % (4.0-6.0)
[2023-01-30 18:17] LABS: ALBUMIN 3.9 G/DL (3.2-5.2); ALKALINE PHOSPHATASE 65 U/L (46-116); ALT/SGPT 48 U/L (7.0-40); AST/SGOT 25 U/L (<34); BILIRUBIN,TOTAL 0.8 MG/DL (0.3-1.2); BLOOD UREA NITROGEN 14 MG/DL (9-23); CALCIUM LEVEL 8.9 MG/DL (8.3-10.6); CARBON DIOXIDE LEVEL 28 MMOL/L (20-31); CHLORIDE LEVEL 102 MMOL/L (98-107); CHOLESTEROL LEVEL 212 MG/DL (<200); CHOLESTEROL RISK RATIO 3.56 (<5); GLOMERULAR FILTRATION RATE > 60.0 (>45); GLUCOSE, FASTING 106 MG/DL (74-106); HDL CHOLESTEROL 59.5 MG/DL (>40); LDL CHOLESTEROL 124.1 MG/DL (<100); MAGNESIUM LEVEL 1.9 MG/DL (1.8-2.4); NON-HDL-C 152.5 MG/DL; POTASSIUM SERUM 4.4 MMOL/L (3.5-5.1); SODIUM LEVEL 136 MMOL/L (136-145); TOTAL PROTEIN 6.5 G/DL (5.7-8.2); TRIGLYCERIDES LEVEL 142 MG/DL (<150)
== END ==
LOC: M SFHCCLAY 10:00
PROVIDERS: ATTEND Family Medicine
DX: E78.2 Mixed hyperlipidemia (principal); K21.00 Gastro-esophageal reflux disease with esophagitis, without bleeding; R73.01 Impaired fasting glucose

== ENCOUNTER → 2023-02-07 | Outpatient (CLI) | payer MEDICARE | LOC: M CLY 11:14 | PROVIDERS: ATTEND Family Medicine | DX: M75.32 Calcific tendinitis of left shoulder (principal); M25.511 Pain in right shoulder ==

== ENCOUNTER → 2023-07-05 | Outpatient (CLI) | payer MEDICARE | LOC: M WHC 10:55 | PROVIDERS: ATTEND Family Medicine | DX: Z12.31 Encounter for screening mammogram for malignant neoplasm of breast (principal) ==

== ENCOUNTER → 2023-07-08 | Outpatient (CLI) | payer MEDICARE | LOC: M CLY 11:55 | PROVIDERS: ATTEND Physician Assistant | DX: M54.6 Pain in thoracic spine (principal) ==

== ENCOUNTER → 2023-08-06 | Outpatient (CLI) | payer MEDICARE | LOC: M CLY 10:08 | PROVIDERS: ATTEND Family Medicine | DX: R07.81 Pleurodynia (principal) ==

== ENCOUNTER → 2023-08-31 | Outpatient (CLI) | payer MEDICARE | LOC: M RAD 11:03 | PROVIDERS: ATTEND Family Medicine | DX: M75.42 Impingement syndrome of left shoulder (principal); M75.52 Bursitis of left shoulder; M75.02 Adhesive capsulitis of left shoulder; M25.512 Pain in left shoulder ==

== ENCOUNTER → 2023-10-15 | Outpatient (CLI) | payer MEDICARE ==
[~2023-10-15] MED LIST changes: +PROHANCE 279.3MG/ML 15ML VIAL As Ordered ONE
== END ==
LOC: M RAD 12:23
PROVIDERS: ATTEND Family Medicine
DX: K86.2 Cyst of pancreas (principal)
CPT/HCPCS: 74183; A9576

== ENCOUNTER → 2024-02-03 | Outpatient (REF) | payer MEDICARE ==
[~2024-02-03] MED LIST changes: -PROHANCE 279.3MG/ML 15ML VIAL As Ordered ONE
[2024-02-03 18:28] LABS: HEMOGLOBIN 12.6 g/dl (12.0-15.5); MEAN CORPUSCULAR HEMOGLOBIN 30.5 pg (27.0-33.0); MEAN CORPUSCULAR HGB CONC 33.2 g/dl (32.0-36.5); PLATELET COUNT, AUTOMATED 212 10^3/uL (150-450); RED BLOOD COUNT 4.13 10^6/uL (4.00-5.40); WHITE BLOOD COUNT 5.3 10^3/uL (4.0-10.0)
[2024-02-03 18:46] LABS: HEMOGLOBIN A1c 5.5 % (4.0-6.0)
[2024-02-03 18:52] LABS: ALBUMIN 3.9 G/DL (3.2-5.2); ALKALINE PHOSPHATASE 77 U/L (46-116); ALT/SGPT 45 U/L (7.0-40); AST/SGOT 29 U/L (<34); BILIRUBIN,TOTAL 0.6 MG/DL (0.3-1.2); BLOOD UREA NITROGEN 13 MG/DL (9-23); CALCIUM LEVEL 9.4 MG/DL (8.3-10.6); CARBON DIOXIDE LEVEL 28 MMOL/L (20-31); CHLORIDE LEVEL 103 MMOL/L (98-107); CHOLESTEROL LEVEL 161 MG/DL (<200); CHOLESTEROL RISK RATIO 3.64 (<5); CREATININE FOR GFR 0.64 MG/DL (0.55-1.30); GLOMERULAR FILTRATION RATE > 60.0 (>39); GLUCOSE, FASTING 100 MG/DL (74-106); HDL CHOLESTEROL 44.2 MG/DL (>40); LDL CHOLESTEROL 98.6 MG/DL (<100); NON-HDL-C 116.8 MG/DL; POTASSIUM SERUM 4.5 MMOL/L (3.5-5.1); SODIUM LEVEL 136 MMOL/L (136-145); TOTAL PROTEIN 6.1 G/DL (5.7-8.2); TRIGLYCERIDES LEVEL 91 MG/DL (<150)
== END ==
LOC: M SFHCCLAY 09:52
PROVIDERS: ATTEND Family Medicine
DX: E78.2 Mixed hyperlipidemia (principal); R73.01 Impaired fasting glucose

== ENCOUNTER 2024-03-23 07:51 | Day surgery (SDC) | payer MEDICARE ==
[~2024-03-23] VITALS: Ht 160 cm; Wt 65.7 kg
[~2024-03-23 07:51] MED LIST changes: +MV-M1TAB40 PO; +XELP0.00
[2024-03-23] MEDS: NS 1,000 ML IV ONE (08:52)
[2024-03-23 10:36] VITALS: TEMP 97.5
[2024-03-23 10:55] VITALS: BP 133/62; O2SAT 98
== END 2024-03-23 11:03 | disposition home or self-care (01) ==
LOC: M OPP 07:51
PROVIDERS: ATTEND Internal Medicine Gastroenterology
DX: Z86.010 Personal history of colon polyps (principal); Z80.0 Family history of malignant neoplasm of digestive organs; K64.8 Other hemorrhoids; K57.30 Diverticulosis of large intestine without perforation or abscess without bleeding; Z79.02 Long term (current) use of antithrombotics/antiplatelets; Z79.818 Long term (current) use of other agents affecting estrogen receptors and estrogen levels; Z79.899 Other long term (current) drug therapy

== ENCOUNTER → 2024-07-06 | Outpatient (CLI) | payer MEDICARE | LOC: M WHC 10:54 | PROVIDERS: ATTEND Family Medicine | DX: Z12.31 Encounter for screening mammogram for malignant neoplasm of breast (principal); R92.313 Mammographic fatty tissue density, bilateral breasts ==

== ENCOUNTER → 2025-02-04 | Outpatient (REF) | payer MEDICARE ==
[~2025-02-04] MED LIST changes: -ALIG4CAP PO; +ALIG4CAP3 PO
== END ==
LOC: M SFHCCLAY 10:03
PROVIDERS: ATTEND Family Medicine
DX: E78.2 Mixed hyperlipidemia (principal); R73.01 Impaired fasting glucose; K21.00 Gastro-esophageal reflux disease with esophagitis, without bleeding

== ENCOUNTER → 2025-03-23 | Outpatient (CLI) | payer MEDICARE | LOC: M WUC 14:12 | PROVIDERS: ATTEND Physician Assistant | DX: M18.12 Unilateral primary osteoarthritis of first carpometacarpal joint, left hand (principal) ==

== ENCOUNTER → 2025-07-08 | Outpatient (CLI) | payer MEDICARE | LOC: M WHC 11:24 | PROVIDERS: ATTEND Family Medicine | DX: Z12.31 Encounter for screening mammogram for malignant neoplasm of breast (principal) ==